=== PATIENT | male | born 1975 | race Caucasian/White ===

== ENCOUNTER 2025-04-13 10:46 | Outpatient (CLI) | payer BC, SELFPAY ==
--- NOTE | ~2025-04-13 | XR_ITS ---
XR lumbar spine 6V w bending Indication: low back pain x 1 week, no inj, no surg Comparison: None Findings: No fracture, no subluxation with flexion and extension. The disc heights are intact. Soft tissues unremarkable Impression: No acute abnormality. Reviewed, dictated and finalized at location P. [employer] [employer] Impression: No acute abnormality.
== END 2025-04-13 10:47 | disposition home or self-care (01) ==
LOC: GOSHIMG 10:49
PROVIDERS: PCP Internal Medicine; Visit Provider Chiropractor
DX: M54.50 Low back pain, unspecified (principal)
CPT/HCPCS: 72114